=== PATIENT | male | born 1955 | race Caucasian/White ===

== ENCOUNTER 2018-08-25 00:42 | Emergency (ER) | payer MEDICARE ==
[2018-08-25 00:43] VITALS: BMI 28.8
[2018-08-25 00:51] VITALS: TEMP 97.3; O2SAT 100
[2018-08-25 01:48] LABS: BASO # 0.01 K/mm3 (0.0-2.0); BASO % 0.2 % (0.0-3.0); EOS # 0.1 (0.0-0.7); EOS % 3.1 % (1.5-5.0); HEMOGLOBIN 13.6 g/dL (14.0-18.0); LYMPH # 0.8 (1.2-3.4); LYMPH % 19.1 % (22.0-35.0); MEAN CORPUSCULAR HEMOGLOBIN 25.7 pg (25.0-35.0); MEAN CORPUSCULAR HGB CONC 32.5 g/dl (31.0-37.0); MEAN PLATELET VOLUME 10.3 fl (7.0-11.0); MONO # 0.3 (0.1-0.6); MONO % 6.8 % (1.0-6.0); RBC 5.29 10^6/uL (3.5-6.1); RED CELL DISTRIBUTION WIDTH 15.8 % (11.5-14.5); WHITE BLOOD COUNT 4.2 10^3/uL (4.5-11.0)
[2018-08-25 01:55] LABS: INR 1.11; PARTIAL THROMBOPLASTIN TIME 35.4 Seconds (26.9-38.3); PROTHROMBIN TIME 12.3 SECONDS (9.4-12.5)
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
[2018-08-25 02:09] LABS: ALB/GLOB RATIO 1.2 (1.1-1.8); ALBUMIN 4.4 g/dL (3.0-4.8); ALT/SGPT 39 U/L (7-56); AST/SGOT 34 U/L (17-59); BLOOD UREA NITROGEN 30 mg/dL (7-21); CALCIUM 9.3 mg/dL (8.4-10.5); GFR NON-AFRICAN AMERICAN > 60
[2018-08-25 02:40] VITALS: BP 131/86; PULSE 78; RESP 17
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
--- NOTE | 2018-08-25 13:21 | RAD ---
Date of service: 08/25/2018 PROCEDURE: Right small finger radiographs. HISTORY: pain COMPARISON: None. TECHNIQUE: AP radiograph of the right hand, as well as spot oblique and lateral images of small finger were obtained. FINDINGS: RIGHT SMALL FINGER: There is acute spiral and mildly displaced fracture at the proximal phalanx of the right small finger noted. Remainder of the right hand (as seen on the AP view) grossly unremarkable. JOINTS: Normal. SOFT TISSUES: Mild soft tissue swelling OTHER FINDINGS: Noted IMPRESSION: Acute fracture at the proximal phalanx of the right small finger.
--- NOTE | 2018-08-25 13:23 | RAD ---
Date of service: 08/25/2018 HISTORY: possible OR COMPARISON: Comparison is made with 06/24/2019 FINDINGS: LUNGS: Suboptimal study due to portable technique PLEURA: No significant pleural effusion identified, no pneumothorax apparent. CARDIOVASCULAR: No aortic atherosclerotic calcification present. Normal cardiac size. No pulmonary vascular congestion. OSSEOUS STRUCTURES: Questionable defect in the midportion of the right humerus. VISUALIZED UPPER ABDOMEN: Normal. OTHER FINDINGS: None. IMPRESSION: Suboptimal study. No evidence of acute pulmonary disease. Questionable cortical defect in the mid right humerus.
--- NOTE | 2018-08-25 22:30 | CARD ---
APPROVED REPORT Date of service: 08/25/2018 EKG Measurement Heart [id number] <Conclusion> Normal sinus rhythm Lateral infarct, age undetermined Abnormal ECG
== END 2018-08-25 02:39 | disposition home or self-care (01) ==
LOC: ED 00:42
DX: S62.616A Displaced fracture of proximal phalanx of right little finger, initial encounter for closed fracture (principal); V49.9XXA Car occupant (driver) (passenger) injured in unspecified traffic accident, initial encounter

== ENCOUNTER 2018-08-25 10:09 | Observation (INO) | payer MEDICARE ==
[2018-08-25 00:43] VITALS: BMI 28.8
[2018-08-25] MEDS ORDERED: Propofol 10 mg/ml Inj (20 ML) ONE (11:54)
[2018-08-25] MEDS ORDERED: Midazolam 2 MG/2 ML VIAL ONE (11:55)
[2018-08-25] MEDS ORDERED: Bupivacaine 0.5% 50 ML IJ ONE (12:31)
[2018-08-25] MEDS ORDERED: Lidocaine 1% Inj (20ml) ONE (12:31)
--- NOTE | 2018-08-25 13:20 | PCM.SURG1 ---
Surgeon's Initial Post Op Note - Surgeon's Notes Surgeon: Vipin Fnps: Rahul PGY4 Type of Anesthesia: IV Sedation, Local Pre-Operative Diagnosis: Fx R 5th proximal phalanx Operative Findings: Oblique fx Post-Operative Diagnosis: same Operation Performed: percutaneous pinning of R 5th proximal phalanx Specimen/Specimens Removed: none Estimated Blood Loss: EBL {In ML}: 5 Blood Products Given: N/A Drains Used: No Drains Post-Op Condition: Good Date of Surgery/Procedure: 08/25/18 Time of Surgery/Procedure: 13:19
[2018-08-25] MEDS ORDERED: Oxycodone/Acetaminophen 5/325 mg Tab PO PRN (13:22)
[2018-08-25] MEDS ORDERED: Lactated Ringer's 1,000 ML IV SCH (13:30)
--- NOTE | 2018-08-25 14:16 | RAD ---
Date of service: 08/25/2018 PROCEDURE: Fluoroscopic guidance in the OR HISTORY: ORIF RT 5TH DIGIT COMPARISON: Comparison is made with the previous x-ray of right hand TECHNIQUE: Fluoroscopic guidance was provided in the OR during internal fixation of the previously noted proximal phalanx 5th right digit fracture. Total cumulative dose 0.46 mGy. Total fluoroscopic time 34.4 second FINDINGS: Internal fixation of the previously noted right 5th digit proximal phalanx fracture. IMPRESSION: Fluoroscopic guidance as discussed above.
[2018-08-25 17:09] VITALS: BP 127/91; PULSE 65; RESP 20; TEMP 99; O2SAT 95
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
--- NOTE | 2018-08-26 14:11 | CP.PCM.DIS ---
Provider - Provider Date of Admission: 08/25/18 10:11 Attending physician: Toni Solomon MD Primary care physician: Rashawn Lock MD Time Spent in preparation of Discharge (in minutes): 35 Hospital Course - Lab Results Lab Results: Most Recent Lab Values POC Glucose (mg/dL) 106 mg/dL (65-110) 08/25/18 13:25 Discharge Plan - Discharge Medications Prescriptions: Ibuprofen [Motrin Tab] 600 mg PO Q6H PRN #20 tab PRN Reason: Pain, Moderate (4-7) oxyCODONE/Acetaminophen [Percocet 5/325 mg Tab] 1 ea PO Q6 #10 tab - Follow Up Plan Condition: GOOD Disposition: HOME/ ROUTINE Instructions: Finger Fracture Additional Instructions: Percocet/Ibuprofen for pain Splint is to stay dry and in place at all times Keep arm elevated, sling for 2-3 hrs minimum per day Follow up in office this Monday, call to make appointment Referrals: Rashawn Lock MD [Primary Care Provider] - Cyndi Lew MD [Staff Provider] - Attending/Attestation - Attestation I have personally seen and examined this patient.: Yes I have fully participated in the care of the patient.: Yes I have reviewed all pertinent clinical information, including history, physical exam and plan: Yes Notes (Text): 08/26/18 14:09 Discharge summary for 08/25/18. see H and P done on the same day. 1. Acute fracture of the proximal phalanx of right small finger. Status post surgical fixation by orthopedics Dr. LEW. Discharge and follow-up instruction given by orthopedics. 2. Pain management with Percocet or Motrin as needed. 3. Diabetes; continue Jardiance and metformin. 4. Chronic hepatitis B; continue vemlidy. 5. Portable chest x-ray showed suboptimal study and possible cortical defect in the right mid humerus. No pain or acute clinical findings. Advised to follow-up with outpatient x-ray of the humerus. Patient will be discharged home today. Follow-up with PMD Dr. lock. Follow-up with orthopedics Dr. Lew. Follow-up with him on Monday for new cast. Advised to follow-up with physical therapy/ hand therapy as outpatient. Physical therapy Prescription will be given by orthopedics. Percocet when necessary for pain. Advised to avoid driving till cleared by orthopedics. Discharge instructions given.
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
== END 2018-08-25 17:21 | disposition home or self-care (01) ==
LOC: 3RNO 10:11 → INTOOBSV 10:11
PROVIDERS: ADMIT Internal Medicine; ATTEND Internal Medicine
DX: S62.616A Displaced fracture of proximal phalanx of right little finger, initial encounter for closed fracture (principal); B18.1 Chronic viral hepatitis B without delta-agent; E11.9 Type 2 diabetes mellitus without complications; I10 Essential (primary) hypertension; Z87.11 Personal history of peptic ulcer disease; Y92.410 Unspecified street and highway as the place of occurrence of the external cause; V89.2XXA Person injured in unspecified motor-vehicle accident, traffic, initial encounter; Z86.73 Personal history of transient ischemic attack (TIA), and cerebral infarction without residual deficits; Z88.1 Allergy status to other antibiotic agents
CPT/HCPCS: 26727; 71045; 73140; 80053; 82948; 83735; 85025; 85610; 85730; 93005; 99283; C1769; G0378; J0690; J2250; J3010

== ENCOUNTER 2018-09-14 13:10 | Outpatient (CLI) | payer MEDICARE | END 2018-09-14 13:11 | disposition home or self-care (01) | LOC: OPLAB 13:10 ==

== ENCOUNTER 2018-10-19 12:07 | Outpatient (CLI) | payer MEDICARE | END 2018-10-19 12:08 | disposition home or self-care (01) | LOC: LAB 12:07 ==